=== PATIENT | male | born 1955 | race African-American/Black ===

== ENCOUNTER 2019-05-06 18:06 | Emergency (ER) | payer OTHER ==
[~2019-05-06] VITALS: Ht 190.5 cm; Wt 91.0 kg
[~2019-05-06 18:06] MED LIST: BENA20TA10 MT; GABA300S PO; HYDR25TA PO; IBUP-2077 PO
[2019-05-06] MEDS ORDERED: SODIUM CHLORIDE 0.9% 1,000 ML IV ONE (18:44)
[2019-05-06 19:26] LABS: BASOPHILS % 0.7 % (0.0-2.0); EOSINOPHILS % 4.4 % (0.0-5.0); HEMOGLOBIN. 11.2 g/dL (14.0-18.0); LYMPHOCYTES % 30.4 % (20.0-50.0); MEAN CORPUSCULAR HEMOGLOBIN 32.7 pg (28.0-32.0); MEAN CORPUSCULAR VOLUME 96.9 fL (80.0-94.0); MEAN PLATELET VOLUME 7.5 fl (7.4-10.4); NEUTROPHILS % 55.5 % (40.0-76.0); PLATELET 187 x1000/uL (130-400); RED BLOOD CELL COUNT 3.41 mill/uL (4.7-6.1); RED CELL DISTRIBUTION WIDTH 14.3 % (11.6-14.6)
[2019-05-06 19:32] LABS: CHLORIDE 108 mEq/L (98-107)
[2019-05-06 19:34] LABS: INR 1.1; PARTIAL THROMBOPLASTIN TIME 26.9 sec (23.4-31.0)
[2019-05-06 19:57] LABS: CLARITY URINE CLEAR (CLEAR); COLOR URINE YELLOW (YELLOW); KETONES URINE NEGATIVE (NEGATIVE); LEUKOCYTE ESTERASE URINE NEGATIVE (NEGATIVE); NITRITE URINE NEGATIVE (NEGATIVE); OCCULT BLOOD URINE NEGATIVE (NEGATIVE); PH URINE 6.5 (4.5-8.0); PROTEIN URINE NEGATIVE (NEGATIVE); SPECIFIC GRAVITY URINE 1.028 (1.005-1.030); UROBILINOGEN URINE 0.2 E.U./dL (0.2-1.0)
[2019-05-06 23:30] VITALS: BP 131/84
== END 2019-05-06 23:30 | disposition short-term general hospital (02) ==
LOC: ER 18:06 → CANBEDREQ 05-07 05:56
DX: E86.0 Dehydration (principal); R55 Syncope and collapse; Z91.81 History of falling; Z98.890 Other specified postprocedural states; I10 Essential (primary) hypertension
CPT/HCPCS: 36415; 70450; 71045; 72125; 80053; 81003; 83880; 84484; 85025; 85610; 85730; 93005; 99285; J7030